=== PATIENT | female | born 1970 | race Caucasian/White ===

== ENCOUNTER → 2022-10-05 14:22 | Outpatient (BNVA) | payer BC, SELFPAY | PROVIDERS: PCP Nurse Practitioner Family; Visit Provider Specialist | DX: M25.562 Pain in left knee (principal); W10.9XXA Fall (on) (from) unspecified stairs and steps, initial encounter | CPT/HCPCS: 73560; 73565 ==

== ENCOUNTER 2022-10-12 06:00 | Outpatient (CLI) | payer BC, SELFPAY | END 2022-10-12 06:01 | disposition home or self-care (01) | LOC: LAB 12-03 12:07 | PROVIDERS: PCP Nurse Practitioner Family; Visit Provider Specialist | DX: R76.8 Other specified abnormal immunological findings in serum (principal) | CPT/HCPCS: 80053; 85025; 85651; 86140 ==

== ENCOUNTER 2022-11-29 08:30 | Outpatient (RCR) | payer BC, SELFPAY | END 2022-12-06 23:59 | disposition home or self-care (01) | LOC: SPT 08:30 | PROVIDERS: PCP Nurse Practitioner Family; Visit Provider Specialist | DX: M25.562 Pain in left knee (principal) | CPT/HCPCS: 97161 ==

== ENCOUNTER 2022-12-07 06:00 | Outpatient (RCR) | payer BC, SELFPAY | END 2023-01-03 23:59 | disposition home or self-care (01) | LOC: SPT 06:00 | PROVIDERS: PCP Nurse Practitioner Family; Visit Provider Specialist | DX: M25.562 Pain in left knee (principal) | CPT/HCPCS: 97110 ==

== ENCOUNTER → 2023-02-13 09:50 | Outpatient (BNVA) | payer BC, SELFPAY | PROVIDERS: PCP Nurse Practitioner Family; Visit Provider Specialist | DX: M67.432 Ganglion, left wrist (principal) | CPT/HCPCS: 73110 ==

== ENCOUNTER 2023-03-07 07:48 | Outpatient (CLI) | payer BC, SELFPAY ==
--- NOTE | 2023-03-07 08:00 | MR_ITS ---
WS: [id number] EXAMINATION: MR wrist LT wo con* [id number] ORDER DATE: 03/07/2023 8:08 AM COMPARISON: Radiograph February 13, 2023 HISTORY: large ganglion cyst CONTRAST: None. TECHNIQUE: Axial T1, axial T2 fat sat, coronal T1, coronal proton density fat sat, coronal STIR, giovani nal 3D, and sagittal T1 performed. After contrast, axial T1 fat sat, coronal T1 fat sat, and sagittal T1 fat sat were performed. FINDINGS: Lobulated ganglion cyst along the palmar aspect of the distal radial styloid and along the lateral as pect of the distal pole scaphoid. Lobulated ganglion cyst extends along the dorsal intercarpal ligame nt. This extends to the level of the capitate. Largest aspect of the ganglion cyst measures approxima tely 2.3 x 1.2 x 1.4 cm along the distal palmar undersurface of the radial styloid. Normal bone marrow signal in the scaphoid and lunate. Normal scapholunate interval. Mild cystic degen erative changes in the proximal and distal carpal row. Distal radial ulnar joint is normal. TFCC appe ars intact. Cystic degenerative changes involving the 1st CMC and STT with subchondral cystic change. Normal carpal tunnel. Small amount of tenosynovitis along the extensor carpi ulnaris. Otherwise norm al extensor compartment tendons. . MR/MR wrist LT wo con* [id number] IMPRESSION: 1. Lobulated ganglion cyst along the undersurface of the distal radial styloid extending along the distal pole scaphoid measuring 2.3 x 1.2 x 1.4 cm 2. This is contiguous with additional smaller lobulated ganglion cyst extendin g along the dorsal intercarpal ligament to the level of the capitate. 3. 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 4. Normal scapholunate interval. 5. Small amount of tenosynovitis along the extensor carpi ulnaris. 6. No other acute findings.
== END 2023-03-07 07:49 | disposition home or self-care (01) ==
LOC: RAD 07:56
PROVIDERS: PCP Nurse Practitioner Family; Visit Provider Specialist
DX: M67.432 Ganglion, left wrist (principal); M19.032 Primary osteoarthritis, left wrist
CPT/HCPCS: 73221

== ENCOUNTER → 2023-06-19 14:11 | Outpatient (BNVA) | payer BC, SELFPAY | PROVIDERS: PCP Nurse Practitioner Family; Visit Provider Specialist | DX: M17.12 Unilateral primary osteoarthritis, left knee (principal); M23.92 Unspecified internal derangement of left knee; S89.92XA Unspecified injury of left lower leg, initial encounter; W10.9XXA Fall (on) (from) unspecified stairs and steps, initial encounter | CPT/HCPCS: 36415; 73560; 73565; 80053; 81001; 85025; 85651; 86140 ==

== ENCOUNTER 2023-07-11 07:52 | Outpatient (CLI) | payer BC, SELFPAY ==
--- NOTE | 2023-07-11 08:00 | MR_ITS ---
WS: [id number] MRI LEFT KNEE HISTORY: General LEFT knee pain. Limited range of motion. COMPARISON: Radiographs 06/19/2023. Anterior cruciate ligament: Intact. Posterior cruciate ligament: Intact. Medial collateral ligament: MCL is being displaced from the joint line by a large extruded meniscus a nd osteophytes. There is a small amount of reactive fluid adjacent to the MCL. Posterior lateral corner structures: Intact. Medial menisci: The meniscus is extruded 5 mm medial from the joint space. Horizontal tear noted thro ugh the body of the meniscus. Small caliber posterior horn with abnormal signal throughout. There is also mild blunting free edge of the anterior horn. Lateral meniscus: Intact. Normal signal, size and shape. Extensor mechanism: Distal quadriceps tendon and patellar tendons are intact. Fluid and soft tissue: Small to moderate suprapatellar joint effusion. There are small loose bodies w ithin the suprapatellar joint effusion. No Bean's cyst. Osseous and articular structures: Patellofemoral compartment: Moderate to severe patellofemoral joint space narrowing with chondromalac ia. Most significant loss of cartilage along the medial patellar surface. No fracture or marrow edema . Medial compartment: Marked narrowing of the medial compartment with complete loss of cartilage. Payton nal osteophytes along the joint line along with small amount of subchondral marrow edema and fissurin g of the bone. Lateral compartment: Mild narrowing of the lateral compartment with mild chondromalacia. Lobulated cyst extends along the popliteus tendon by 3.5 cm. Bursitis versus meniscal cyst from the p osterior horn. IMPRESSION: 1. Marked narrowing medial compartment with loss of cartilage, marginal osteophyte and extruded menis cus. 2. Medial meniscus extruded 5 mm from the joint space with complex tear in the posterior horn. Additi onal blunting of the free edge anterior horn. 3. Small to moderate suprapatellar joint effusion with small loose bodies. 4. Lobulated cystic mass along the popliteus tendon. Bursitis versus meniscal cyst from an occult tea r of the posterior horn. 5. Moderate to severe patellofemoral joint space narrowing with chondromalacia.
== END 2023-07-11 07:53 | disposition home or self-care (01) ==
PROVIDERS: PCP Nurse Practitioner Family; Visit Provider Specialist
DX: S83.232A Complex tear of medial meniscus, current injury, left knee, initial encounter (principal); X58.XXXA Exposure to other specified factors, initial encounter; M25.78 Osteophyte, vertebrae; M25.462 Effusion, left knee; M23.42 Loose body in knee, left knee; M67.864 Other specified disorders of tendon, left knee; M22.42 Chondromalacia patellae, left knee
CPT/HCPCS: 73721

== ENCOUNTER 2023-08-01 07:51 | Outpatient (RCR) | payer BC, SELFPAY | END 2023-08-05 23:59 | disposition home or self-care (01) | LOC: SPT 07:51 | PROVIDERS: Visit Provider Specialist | DX: M25.562 Pain in left knee (principal) | CPT/HCPCS: 97161 ==

== ENCOUNTER 2023-08-06 06:00 | Outpatient (RCR) | payer BC, SELFPAY | END 2023-08-29 23:59 | disposition home or self-care (01) | LOC: SPT 06:00 | PROVIDERS: Visit Provider Specialist | DX: M25.562 Pain in left knee (principal) | CPT/HCPCS: 97110 ==

== ENCOUNTER → 2023-11-20 11:55 | Outpatient (BNVA) | payer BC, SELFPAY | PROVIDERS: PCP Nurse Practitioner Family; Visit Provider Internal Medicine | DX: R76.8 Other specified abnormal immunological findings in serum (principal); R21 Rash and other nonspecific skin eruption; R53.83 Other fatigue; M25.50 Pain in unspecified joint; R79.89 Other specified abnormal findings of blood chemistry; Z79.899 Other long term (current) drug therapy | CPT/HCPCS: 36415; 80053; 81001; 82306; 82607; 84439; 84443; 85025; 85651; 86140 ==

== ENCOUNTER 2024-02-04 08:32 | Emergency (ER) | payer BC, SELFPAY ==
[2024-02-04 08:40] VITALS: BP 180/112; PULSE 80; TEMP 36.4; O2SAT 96; BMI 36.6
[2024-02-04] MEDS: diphenhydrAMINE 50 mg/mL SDV 1mL IVP (08:55)
[2024-02-04] MEDS: metoclopramide 5 mg/mL SDV 2 mL 10 MG IVP (08:55)
--- NOTE | 2024-02-04 08:56 | PC.PHAR ---
PT STATES SHE ATTEMPTED MEDICATIONS THIS MORNING BUT KEPT THROWING UP. 02/04/24
--- NOTE | 2024-02-04 09:02 | W.ED.HA ---
HPI - Headache General: Chief Complaint: Headache Stated Complaint: migraine, n/v Time Seen by Provider: 02/04/24 08:48 Source: patient Mode of arrival: ambulatory Limitations: no limitations History of Present Illness: 53-year-old female Associated symptoms: Deny chest pain, fever(s), nausea, rash or vomiting Review of Systems Const: Denies: fever(s), chills, body aches or change in appetite Card: Denies: chest pain Resp: Denies: dyspnea GI: Denies: abdominal pain, nausea, vomiting or diarrhea Musc: Denies: neck pain or back pain Skin/Breast: Denies: rash Neuro: Reports: headache(s) PFSH ED PFSH: Medical History Low vitamin D level Family History Other CAD (coronary artery disease) Denies family history of Rheumatoid arthritis Diabetes Lupus Hyperlipidemia Chronic kidney disease (CKD) Heart attack Cancer Hypertension Stroke Social History Smoking and tobacco/nicotine status: never used tobacco/nicotine Alcohol intake: current Alcohol intake frequency: few times a month Physical Exam Const: COMMON NORMALS: no acute distress, patient oriented x3 and healthy appearing HENMT: COMMON NORMALS: normocephalic and atraumatic HEAD & SCALP: normocephalic and atraumatic Neck/C-Spine: COMMON NORMALS: full ROM and supple Chest: COMMONS NORMALS: normal inspection of the chest Resp: COMMON NORMALS: normal respiratory effort Cardio: COMMON NORMALS: regular rate, regular rhythm and No murmurs present (Cardio) RATE: regular rate RHYTHM: regular rhythm Extremity: COMMON NORMALS: normal to inspection and full ROM Neuro: COMMON NORMALS: patient oriented x3, moves all extremities and no focal motor deficits Psych: COMMON NORMALS: mental status grossly normal, Normal thought process present and cooperative THOUGHT PROCESS: Normal thought process present Skin: COMMON NORMALS: no rashes or lesions noted and no wounds GENERAL SKIN EXAM: no rashes or lesions noted Course Vital Signs: Vital signs: Vital Signs Temperature 97.5 F L 02/04/24 08:40 Pulse Rate 70 02/04/24 09:15 Blood Pressure 163/101 02/04/24 09:15 Pulse Oximetry 100 02/04/24 09:15 Oxygen Delivery Me thod Room Air 02/04/24 08:40 MDM - Headache Medical Decision Making Patient presents here with a headache likely migraine headache since resolved here did offer CT but she refused stating that it felt like her previous migraines and it is now resolved she is to follow-up with her PCP and return if worsening she understands agrees to plan. Medical Records I reviewed the patient's medical records. No radiology studies performed this visit Discharge Plan Discharge Patient Disposition: Home Clinical Impression: Headache Condition: Stable Prescriptions: No Action naproxen sodium 220 mg capsule 220 mg PO BID PRN (Reason: Pain) Excedrin Migraine 250-250-65 mg tablet 1 tab PO Q6H PRN (Reason: Headache) loratadine [Claritin] 10 mg tablet 10 mg PO DAILY PRN (Reason: allergies) hydroxychloroquine 200 mg tablet 200 mg PO BID Qty: 60 5RF fluticasone propionate 50 mcg/actuation spray,suspension 1 spray INTRANASAL DAILY PRN (Reason: allergies) Voltaren Arthritis Pain 1 % gel 4 g topical QID PRN (Reason: knee pain) Rx Instructions: apply to single knee, ankle, foot; for foot includes sole/toes/top of foot Discharge Orders: Discharge ED (Routine); Ordered 02/04/24 Ordered By: Amanda Ricketts Referrals: Sarai Rosario FNP [Primary Care Provider] - 1-3 days Discharge Diet: Advance as tolerated Discharge Activity: Resume usual activity Patient Instructions: Migraine Headache (ED) Coding Level of Care Code ED [employer] 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
[2024-02-04 09:15] VITALS: BP 163/101; PULSE 70; O2SAT 100
[2024-02-04] MEDS: ketorolac 30 mg/mL INJ 15 MG IVP (10:02)
== END 2024-02-04 10:55 | disposition home or self-care (01) ==
PROVIDERS: Emergency Provider Emergency Medicine; PCP Nurse Practitioner Family
DX: R51.9 Headache, unspecified (principal)
CPT/HCPCS: 96374; 96375; 99284; J1200; J1885; J2765

== ENCOUNTER → 2025-04-02 08:26 | Outpatient (BNVA) | payer BC, SELFPAY | PROVIDERS: PCP Nurse Practitioner Family; Visit Provider Specialist | DX: M17.12 Unilateral primary osteoarthritis, left knee (principal); M23.92 Unspecified internal derangement of left knee; Z01.818 Encounter for other preprocedural examination | CPT/HCPCS: 36415; 73560; 73565; 80053 ==